=== PATIENT | female | born 1985 | race Caucasian/White ===

== ENCOUNTER → 2021-03-27 | Outpatient (CLI) | payer BC ==
--- NOTE | 2021-03-28 07:33 | US ---
EXAMINATION TYPE: US pelvic complete DATE OF EXAM: 03/27/2021 COMPARISON: NONE CLINICAL HISTORY: N92.1 MENOMETRORRHAGIA. Heavy menses pain TECHNIQUE: Transabdominal (TA). Transabdominal sonographic images of the pelvis were acquired. EXAM MEASUREMENTS: Uterus: 10.1 x 4.0 x 4.4 cm Endometrial Stripe: .3 cm Right Ovary: 2.9 x 1.9 x 2.0 cm Left Ovary: 3.4 x 2.0 x 3.1 cm 1. Uterus: Retroverted wnl 2. Endometrium: wnl 3. Right Ovary: wnl 4. Left Ovary: wnl 5. Bilateral Adnexa: wnl 6. Posterior cul-de-sac: wnl IMPRESSION: No distinct abnormality seen.
== END | disposition home or self-care (01) ==
LOC: RADUSWWP 16:28
PROVIDERS: ATTEND Obstetrics & Gynecology
DX: N92.0 Excessive and frequent menstruation with regular cycle (principal)
CPT/HCPCS: 76856

== ENCOUNTER 2021-05-15 06:20 | Day surgery (SDC) | payer BC ==
[2021-05-12 15:41] VITALS: BMI 20.7
--- NOTE | 2021-05-14 13:01 | P.HPOB ---
History of Present Illness H&P Date: 05/14/21 Chief Complaint: Menorrhagia with irregular cycle, family planning This is a 35 y.o. female, 1, para 1, who presents for dilatation and curettage with hysteroscopy and Novasure endometrial ablation along with laparoscopic bilateral tubal ligation via fulgaration due to menorrhagia with irregular cycle and family planning. Her menses are occurring every 1- 2 months and lasting from 3 to 14 days. They are very heavy and at times she has to change a pad and tampon within a half hour. Her pelvic ultrasound shows a uterus measuring 10.1 x 4 x 4.4 cm, endometrium 0.3 cm and normal ovaries. She would like tubal ligation for family planning. OB Hx: . History of 1 delivery. 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 Social Hx: Works at [employer] on weekends. . Review of Systems Constitutional: Reports fatigue, Reports night sweats, Denies chills, Denies fever Eyes: denies blurred vision, denies pain Ears, nose, mouth and throat: Denies headache, Denies sore throat Cardiovascular: Denies chest pain, Denies shortness of breath Gastrointestinal: Reports change in bowel habits (pain with BMs only on menses), Reports vomiting (with menses), Denies abdominal pain, Denies diarrhea, Denies nausea Genitourinary: Reports dysmenorrhea, Reports menorrhagia, Reports pelvic pain, Denies dysuria, Denies hematuria Menstruation: Reports cycle variable, Reports menses 8 or > days Musculoskeletal: Reports low back pain Integumentary: Denies pruritus, Denies rash Neurological: Denies numbness, Denies weakness Psychiatric: Reports insomnia Past Medical History Past Medical History: Thyroid Disorder Additional Past Medical History / Comment(s): Anemia. History of Any Multi-Drug Resistant Organisms: None Reported Past Surgical History: Section, Tonsillectomy Additional Past Surgical History / Comment(s): Section X1, wisdom teeth extracted. Past Anesthesia/Blood Transfusion Reactions: No Reported Reaction, Motion Sickness Past Psychological History: No Psychological Hx Reported Smoking Status: Current every day smoker Past Alcohol Use History: Rare Additional Past Alcohol Use History / Comment(s): Smokes 10 cigarettes daily, has been smoking for since 2001. Past Drug Use History: None Reported - Past Family History Mother Additional Family Medical History / Comment(s): Lupus Medications and Allergies Home Medications Medication Instructions Recorded Confirmed Type Iron (Unknown Dose) 1 tab PO HS 05/12/21 05/15/21 History Levothyroxine Sodium [Synthroid] 50 mcg PO HS 05/12/21 05/15/21 History Multivitamins, Thera [Multivitamin 1 tab PO HS 05/12/21 05/15/21 History (formulary)] Vitamin D (Unknown Dose) 1 tab PO DAILY 05/12/21 05/15/21 History Allergies Allergy/AdvReac Type Severity Reaction Status Date / Time Penicillins Allergy Vomiting Verified 05/15/21 06:55 Exam Osteopathic Statement: *. No significant issues noted on an osteopathic structural exam other than those noted in the History and Physical/Consult. HEENT: within normal limits Heart: regular rate and rhythm Lungs: clear to auscultation bilaterally Abdomen: soft, non-tender Pelvic: uterus small, retroverted, non-tender with no adnexal masses palpated Extremities: neg. Cierra's Assessment and Plan (1) Menorrhagia with irregular cycle Current Visit: No Status: Acute Code(s): N92.1 - EXCESSIVE AND FREQUENT MENSTRUATION WITH IRREGULAR CYCLE SNOMED Code(s): 813090293 (2) Family planning Current Visit: No Status: Acute Code(s): Z30.09 - ENCOUNTER FOR OT GENERAL CNSL AND ADVICE ON CONTRACEPTION SNOMED Code(s): 386243608 Plan: Proceed with dilatation and curettage with hysteroscopy and Novasure endometrial ablation with laparoscopic bilateral tubal ligation via fulgaration. I have discussed the risks, benefits, and alternative therapies for the above- mentioned procedure and for both sedation/anesthesia as well as necessary blood products administration, if indicated, as they pertain to this patient. The patient has indicated her understanding and acceptance of the risks and procedures discussed.
[~2021-05-15 06:20] MED LIST: DEXAMETHASONE SOD PHOSPHATE 4 MG/ML 1 ML VIAL IV ONE; LACTATED RINGERS 1,000 ML IV SCH; ONDANSETRON 4 MG/2 ML VIAL IVP ONE; Pre Op ABX Message 1 EACH MISC MISCELLANE ONE
[2021-05-15] MEDS ORDERED: HYDROmorphone 0.5 MG/0.5 ML SYRINGE IVP PRN (07:00)
[2021-05-15] MEDS ORDERED: LIDOCAINE 1% (10MG/ML) FOR IV START INTRADERMA ONE (07:12)
[2021-05-15 07:13] VITALS: RESP 16
[2021-05-15] MEDS ORDERED: SCOPOLAMINE 1.5MG/72HR PATCH TRANSDERM ONE (07:19)
[2021-05-15] MEDS ORDERED: LIDOCAINE 1% INJ 10MG/ML (20 ML MDV) ONE (07:34)
[2021-05-15] MEDS ORDERED: SUCCINYLCHOLINE CHLORIDE 100 MG/5 ML SYR IV ONE (07:34)
[2021-05-15] MEDS ORDERED: PROPOFOL 10 MG/ML 20 ML VIAL IV ONE (07:34)
[2021-05-15] MEDS ORDERED: fentaNYL (PF) 50 MCG/ML 2 ML AMP ONE (07:34)
[2021-05-15] MEDS ORDERED: GLYCOPYRROLATE 0.2 MG/ML 2 ML VIAL ONE (07:34)
[2021-05-15] MEDS ORDERED: KETOROLAC 15 MG/ML 1 ML VIAL ONE (07:34)
[2021-05-15] MEDS ORDERED: MIDAZOLAM 2 MG/2 ML VIAL ONE (07:34)
[2021-05-15] MEDS ORDERED: BUPIVACAINE (PF) 0.25% 30 ML VIAL SQ ONE (07:38)
--- NOTE | 2021-05-15 08:28 | P.OP ---
Date of Procedure: 05/15/21 Preoperative Diagnosis: Menorrhagia with irregular cycle Family planning Postoperative Diagnosis: Same Procedure(s) Performed: Dilation and curettage with hysteroscopy and NovaSure endometrial ablation Laparoscopic bilateral tubal ligation via fulguration Anesthesia: DUSTIN Surgeon: Ban Sinclair Estimated Blood Loss (ml): 10 Pathology: other (Endometrial curettings) Condition: stable Disposition: same day Indications for Procedure: This is a 35 y.o. female, 1, para 1, who presents for dilatation and curettage with hysteroscopy and Novasure endometrial ablation along with laparoscopic bilateral tubal ligation via fulgaration due to menorrhagia with irregular cycle and family planning. Her menses are occurring every 1- 2 months and lasting from 3 to 14 days. They are very heavy and at times she has to change a pad and tampon within a half hour. Her pelvic ultrasound shows a uterus measuring 10.1 x 4 x 4.4 cm, endometrium 0.3 cm and normal ovaries. She would like tubal ligation for family planning. Operative Findings: Uterus is retroverted and sounded to 8 cm. Cervix is sounded to 4 cm. Dyssynchronous and atrial appearance was noted with questionable submucosal anterior fibroid. Both tubal ostia are visualized. A moderate amount of endometrial curettings are obtained. There was an irregular contour anteriorly also consistent with submucosal fibroids. Upon laparoscopy, the right tube and ovary appeared normal. Uterus appeared normal in a retroverted position. The left ovary and tube were adherent behind the uterus and in the cul-de-sac slightly. There was evidence of what appeared to be endometriosis in the cul- de-sac and on the left side. The appendix was visualized and appeared normal. The liver edge appeared normal. Description of Procedure: The patient is taken to the operating room. She is placed in the dorsal lithotomy position after general anesthesia was given. She is prepped and draped in the normal sterile fashion. Bladder is drained with a catheter and then removed. Pelvic exam is performed under anesthesia. Uterus is found to be retroverted with no adnexal masses. She is placed in slight Trendelenburg position. A right angle retractor is used to visualize the cervix. The anterior lip of the cervix is grasped with a single-tooth tenaculum. Cervix is sounded to 4 cm. Uterus is sounded to 8.5 cm. Cervix is gently dilated with Rangel dilators until a hysteroscope could be passed. Hysteroscopy is performed using normal saline. The above noted findings are noted. Next a polyp forceps is introduced. A moderate amount of tissue was obtained. Next medium-sized size sharp curette was placed. A moderate amount of endometrial curettings were obtained. Next NovaSure array was inserted into the endometrial cavity. Length was set at 4.5 cm and width was determined to be 3.8 cm. Next cavity assessment was completed and passed on the first try. Next NovaSure array was fired at 94 W for 84 seconds. Next the array was removed, inspected and then discarded. Next the hysteroscope was reinserted. Uniform charring was noted. Pictures were taken. Hysteroscope was removed. A kroner uterine manipulator is then inserted through the cervix and the balloon is inflated. Single-tooth tenaculum was removed from the anterior lip of the cervix. Minimal bleeding was noted. All other instruments removed from the vagina. Gloves are changed and attention is turned to the abdomen. A small stab incision was made with a scalpel in the infraumbilical fold. A towel clip was placed above the umbilicus for retraction. A 5 mm disposable bladeless trocar was then inserted into the peritoneal cavity under direct visualization. Once inside, pneumoperitoneum was achieved with CO2 gas. The insert was removed and the camera was placed. Intraperitoneal placement was confirmed. No bleeding was noted. Next the patient was placed in Trendelenburg position. A small stab incision was made suprapubically and a 5 mm disposable bladeless trocar was inserted into the peritoneal cavity under direct visualization. Once inside pelvic contents were inspected. Pictures were taken. Next a bipolar Kleppinger instrument was placed through the inferior trocar and the midportion of each tube was brought away from other structures and completely fulgurated on approximate 2-3 cm segment of each tube. Excellent hemostasis was noted. Pictures were taken. Pneumoperitoneum was released after the inferior trocar was removed under direct visualization. The upper trocar was then removed. The skin incisions were then closed with 4-0 Vicryl suture in a subcuticular fashion. Incisions were then injected with quarter percent Marcaine. Approximately 7 mL were used. Next the kroner uterine manipulator was removed. Minimal bleeding was noted. All sponge and needle counts are correct. The patient is then taken to recovery room in stable condition.
[2021-05-15 08:43] VITALS: TEMP 96.8
[2021-05-15] MEDS ORDERED: LACTATED RINGERS 1,000 ML IV ONE (09:12)
[2021-05-15 09:40] VITALS: BP 98/66; PULSE 55
== END 2021-05-15 10:33 | disposition home or self-care (01) ==
LOC: OR 06:20
PROVIDERS: ATTEND Obstetrics & Gynecology
DX: N92.0 Excessive and frequent menstruation with regular cycle (principal); E07.9 Disorder of thyroid, unspecified; G47.00 Insomnia, unspecified; F17.210 Nicotine dependence, cigarettes, uncomplicated
CPT/HCPCS: 58563; 58671; 81025; 88305; J2250; J1100; J2405; J2001; J3010; J1885; J0330; J2704; J1170